=== PATIENT | male | born 1980 | race African-American/Black ===

== ENCOUNTER 2016-06-18 01:12 | Emergency (ER) | payer MEDICAID, OTHER ==
[~2016-06-18] VITALS: Ht 172.7 cm; Wt 63.5 kg
--- NOTE | 2016-06-18 01:28 | NUR ---
36 YO MALE BB RA. PT IS ALERT X 3, C/O ABDOMINAL PAIN, CHRONIC IN NATURE. PT ASSISTED TO ER BED BY EMS. PT GOWNED, PLACE [employer]. SKIN WARM AND DRY, RR EVEN AND UNLABORED. AWAITING ORDERS FROM PROVIDER
[2016-06-18] MEDS ORDERED: MORPHINE SULFATE INJ 2 MG/ML DISP.SYRIN IM ONE (01:30)
[2016-06-18] MEDS ORDERED: ONDANSETRON 4 MG TAB.RAPDIS SL ONE (01:30)
[2016-06-18] MEDS ORDERED: ONDANSETRON 4 MG TAB.RAPDIS ONE (01:34)
[2016-06-18] MEDS ORDERED: MORPHINE SULFATE INJ 4 MG/ML DISP.SYRIN ONE (01:34)
[2016-06-18 01:42] VITALS: BP 128/84
--- NOTE | 2016-06-18 02:29 | NUR ---
Patient discharged to home in stable condition. Written and verbal after care instructions given. Patient verbalizes understanding of instruction. PT ambulatory with a steady gait VITAL SIGNS WITHIN NORMAL LIMITS.
== END 2016-06-18 01:44 | disposition home or self-care (01) ==
LOC: ER 01:15
DX: G89.29 Other chronic pain (principal); R10.9 Unspecified abdominal pain; C46.9 Kaposi's sarcoma, unspecified
CPT/HCPCS: A4606; J2270; Q0162; Z7610